=== PATIENT | female | born 1985 | race Caucasian/White ===

== ENCOUNTER 2018-09-02 10:58 | Outpatient (CLI) | payer OTHER ==
[~2018-09-02] VITALS: Wt 86.3 kg
[2018-09-02 11:49] LABS: HEMATOCRIT 40.9 % (37.0-47.0); HEMOGLOBIN 13.7 g/dl (12.5-16.0); MEAN CELL VOLUME 86 fl (80.0-100.0); MEAN CORPUSCULAR HEMOGLOBIN 29 pg (27.0-31.0); MEAN CORPUSCULAR HGB CONC 34 g/dl (33.0-37.0); MEAN PLATELET VOLUME 10.4 fl (7.4-10.4); PLATELET COUNT 247 K/mm3 (130-400); RED BLOOD COUNT 4.78 M/mm3 (4.10-5.30); REDCELL DISTRIBUTION WIDTH-CV 12.6 % (11.5-14.5)
[2018-09-02] MEDS ORDERED: VIIBRYD20 MG PO (11:51)
[2018-09-02] MEDS ORDERED: AMBIEN 10MG10 MG PO (11:51)
[2018-09-02 11:52] VITALS: BP 114/74; PULSE 55; TEMP 97.7
[2018-09-02] MEDS ORDERED: COUMADIN 5MG5 MG/TAB PO (11:52)
[2018-09-02 11:57] LABS: INR 2.3 (0.8-3.0); PROTHROMBIN TIME 26.4 SECONDS (9.7-12.8)
[2018-09-02 11:59] LABS: CALCIUM 9.2 mg/dL (8.4-10.2); CREATININE, serum 0.77 mg/dL (0.52-1.25); POTASSIUM 4.1 mmol/L (3.4-5.0)
[2018-09-02 12:35] VITALS: BP 106/64; PULSE 49
[2018-09-02 12:40] VITALS: BP 112/69; PULSE 52
[2018-09-02 13:00] VITALS: BP 111/82; PULSE 57
[2018-09-02 13:20] VITALS: BP 127/77; PULSE 53
== END 2018-09-02 13:59 | disposition home or self-care (01) ==
LOC: COL.RAD 10:58
PROVIDERS: Internal Medicine Cardiovascular Disease
DX: Q21.3 Tetralogy of Fallot (principal)
CPT/HCPCS: G9654; J2250; J2704; J7120

== ENCOUNTER 2018-10-11 22:51 | Inpatient (IN) | payer OTHER ==
[~2018-10-11] VITALS: Ht 157.5 cm; Wt 90.0 kg
[~2018-10-11 22:51] MED LIST: AMBIEN 10MG10 MG PO; COUMADIN 5MG5 MG/TAB PO; VIIBRYD20 MG PO
--- NOTE | 2018-10-11 23:32 | NUR ---
Patient arrived to the unit via stretcher. Complaining of some SOA. Placed on 2L NC.
[2018-10-12] VITALS (379 sets, daily range): BP systolic 96–118; BP diastolic 60–77; PULSE 55–67; TEMP 97.9–98.4; O2SAT 93–100
--- NOTE | 2018-10-12 00:21 | NUR ---
Called Dr. Chavze to report that patient has arrived to the unit. Stated will come to see her.
[2018-10-12 01:23] LABS: BASO # 0.1 (0.0-0.2); BASO % 0.5 % (0.0-2.0); EOS # 0.2 (0.0-0.7); EOS % 1.6 % (0-4.0); GRAN # 7.3 (1.4-6.5); GRAN % 58.6 % (42.2-75.2); HEMATOCRIT 39.9 % (37.0-47.0); HEMOGLOBIN 13.5 g/dl (12.5-16.0); LYMPH # 3.8 (1.2-3.4); LYMPH % 30.9 % (20.0-51.0); MEAN CELL VOLUME 86 fl (80.0-100.0); MEAN CORPUSCULAR HEMOGLOBIN 29 pg (27.0-31.0); MEAN CORPUSCULAR HGB CONC 34 g/dl (33.0-37.0); MEAN PLATELET VOLUME 10.8 fl (7.4-10.4); PLATELET COUNT 243 K/mm3 (130-400); RED BLOOD COUNT 4.66 M/mm3 (4.10-5.30)
[2018-10-12] MEDS ORDERED: LUNESTA2 MG PO (01:27)
[2018-10-12 01:31] LABS: PARTIAL THROMBOPLASTIN TIME 94.2 SECONDS (26.0-37.0)
[2018-10-12 01:36] LABS: CALCIUM 9.1 mg/dL (8.4-10.2); CREATININE, serum 0.78 mg/dL (0.52-1.25); POTASSIUM 4.1 mmol/L (3.4-5.0)
--- NOTE | 2018-10-12 05:45 | NUR ---
Patient using internet on telephone upon entering room. Reporting 8/10 chest pain and 10/10 headache. PRN Dilauded administered. No other complaints at this time.
--- NOTE | 2018-10-12 07:10 | NUR ---
Patient awake in bed, talking on phone at this time. This RN in to introduce self and ask for needs. States continues to have chest pain, pressure but a lot of shart pains also. This RN awaiting morning report, will see what patient has for PRN's and assess from there. Patient states ok. Call light at side.
--- NOTE | 2018-10-12 07:35 | NUR ---
Report recieved from Angela VARELA.
[2018-10-12 08:09] LABS: BASO % 0.3 % (0.0-2.0); EOS # 0.2 (0.0-0.7); EOS % 2.3 % (0-4.0); GRAN # 5.7 (1.4-6.5); GRAN % 56.7 % (42.2-75.2); HEMATOCRIT 38.8 % (37.0-47.0); HEMOGLOBIN 13.3 g/dl (12.5-16.0); LYMPH # 3.2 (1.2-3.4); LYMPH % 31.9 % (20.0-51.0); MEAN CELL VOLUME 86 fl (80.0-100.0); MEAN CORPUSCULAR HEMOGLOBIN 29 pg (27.0-31.0); MEAN CORPUSCULAR HGB CONC 34 g/dl (33.0-37.0); MEAN PLATELET VOLUME 10.8 fl (7.4-10.4); MONO # 0.9 (0.1-0.6); MONO % 8.5 % (1.7-9.3); PLATELET COUNT 201 K/mm3 (130-400); RED BLOOD COUNT 4.54 M/mm3 (4.10-5.30); REDCELL DISTRIBUTION WIDTH-CV 12.9 % (11.5-14.5)
[2018-10-12 08:12] LABS: INR 1.3 (0.8-3.0); PROTHROMBIN TIME 15.3 SECONDS (9.7-12.8)
[2018-10-12 08:17] LABS: CALCIUM 8.8 mg/dL (8.4-10.2); CREATININE, serum 0.73 mg/dL (0.52-1.25)
--- NOTE | 2018-10-12 08:30 | NUR ---
Recieved call from patient's mother. Mother is very concerned that patient's needs aren't being met. Wants to know what we're doing to help with patient's pain control, what's being down for PE. Talked through patient's POC with mother, states "Well I guess I'll have to drive up from [place] to get her the right care she needs." This RN speaks with patient and . Patient states mom is just over-protective, states "Don't worry about her, she can't do anything from [place] so this is how she reacts." Patient states didn't sleep much last night, very noisy on unit. Lights turned down, door shut and no visitor sign put up. Will reassess for needs as needed.
--- NOTE | 2018-10-12 10:44 | NUR ---
derrick worker attended clinical rounds and met with patient and spouse regarding discharge planning. 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 Patient's cardilogist is Dr Gutierrez and bee producer is Dr Meeks. Patient has monthly INR lab work in [place], where her physicians are located. Patient states she would want to have daily INR's drawn at [facility] due to location and then when they are decreased in amount, she would resume in [place]. Patient will need to be on Lovanox and is hesitent on giving herself a shot. Worker provided support and advised that nursing would begin teaching on Lovanox. Worker left message for Gricel Styles ([facility] with [facility]'s Medical Management office) #[phone] to secure medication and INR at [facility]. Patient plasn to transfer to the medical floor today and will discharge home with spouse upon discharge.
--- NOTE | 2018-10-12 12:10 | NUR ---
Report called to Luis Alberto VARELA
--- NOTE | 2018-10-12 12:20 | NUR ---
Patient transferred to room 351 via wheelchair with at side. Room turned down by this RN, no nurse or tech in room to accept patient. Call light at side, IV programmed per pump. 1225 Luis Alberto VARELA aware patient here, will be down to see.
--- NOTE | 2018-10-12 13:00 | NUR ---
Patient arrived to the Medical floor at 1230, she is alert/oriented, significant other present, ICU restarted IVF at time of arrival
--- NOTE | 2018-10-12 19:16 | NUR ---
Since taking over cares the pt has been resting on and off. She has had a constant headache. Pain medication administered on NOV. Pt's has been at the bedside; all questions answered. Pt is resting quietly in the bed at this time and she denies further needs. Call light within reach. Report given to AVERY Durán.
--- NOTE | 2018-10-12 22:45 | NUR ---
Completed assessment and medication administration for PT; PT A&Ox3, LCTA, BS active x4, 22G IV left wrist, AHA diet, Lovenox and coumadin therapy, C/O headache 07/07 with little to no relief with medication, although ice therapy assisting well; HX of cheset pain and SOB for 1 week prior to seeking medical attention; pulmonary valve replacement; possible D/C 10/13/2018. PT denies further needs or concerns; reports continued ice therapy for reported headache; Call light placed within reach; Will continue to monitor. CDA
--- NOTE | 2018-10-12 23:46 | NUR ---
PT reports decrease in headache to 4/10 using the numeric scale; PT reports chest soreness without SOA, chest tightness, or other acute changes. PT requesting PRN pain medication per order; [place] 5 given per order for reported pain. PT comfortably resting in bed without further report of further needs or concerns at this time. Call light placed within reach; Will continue to monitor. CDA
[2018-10-13 00:21] VITALS: BP 93/61; PULSE 71; TEMP 98.1
[2018-10-13 04:56] VITALS: BP 117/51; BP 122/76; PULSE 58; PULSE 64; TEMP 97.7
--- NOTE | 2018-10-13 05:01 | NUR ---
PT reports nausea without vomiting; PT refused dinner in evening reported stating that she was exhausted and wanted to rest. PT has rested well intermittently without major interruption. PT denies pain at time of report of nausea. PT provided with sprite, ice, basin, and cool rag; no medications requested at this time. Call light placed within reach; Will continue to monitor. CDA
--- NOTE | 2018-10-13 06:33 | NUR ---
Headache resolved early in the evening hours; Short complaint of chest soreness with request for [place] 5 with reported results; Late morning nausea that quickly resolved as well with Sprite, crackers, and cool rag to neck per request. PT able to return to a restful state without further complaints. No further needs stated at time of exit; Call light placed within reach; [facility] CDA
[2018-10-13 06:43] LABS: INR 1.4 (0.8-3.0); PROTHROMBIN TIME 15.9 SECONDS (9.7-12.8)
--- NOTE | 2018-10-13 08:30 | NUR ---
Pt awake alert and oriented. Pt states positive interest in self administering Lovenox. Call light within reach. "Minor nausea" stated d/t anxiety medicine accompanied with "pretty severe headache" that is described as an ache located in the "neck".
[2018-10-13 08:54] VITALS: BP 106/75; PULSE 51; TEMP 98.6
[2018-10-13 11:19] VITALS: BP 101/64; PULSE 67; TEMP 98.4
--- NOTE | 2018-10-13 12:06 | NUR ---
Pt educated on self injection of Lovenox. Pt correctly demonstrated then perfomred self injection without difficulty. Pt stated "that was a lot easier than I thought it would be".
--- NOTE | 2018-10-13 12:18 | NUR ---
First visit from the probation supervisor. No needs right now.
--- NOTE | 2018-10-13 15:40 | NUR ---
natalya faxed order for daily INR to [facility].
[2018-10-13 15:47] VITALS: BP 108/42; PULSE 67; TEMP 98.4
[2018-10-13] MEDS ORDERED: LOVENOX 100100 MG/ML SQ (16:34)
--- NOTE | 2018-10-13 17:58 | NUR ---
Pt's home pharmacy has already closed therefore pt would be unable to administer evening dose of Lovenox. Pharmacist Anthony notifed and said to give Lovenox dose now and ensure pt obtains prescription in the AM. Pt successfully self administered dose - proper hand hygeine and aseptic technique and administration demonstrated. Pt transfered from bed to wheel chair independently and without difficulty. Pt then transported to personal vehicle via wheelchair by RUBI Kohler.
== END 2018-10-13 18:06 | disposition home or self-care (01) | DRG 176 ==
LOC: IMCU 22:51 → MEDICAL 23:32 → ICU 23:32 → MEDICAL 10-12 12:39
PROVIDERS: ADMIT Internal Medicine Pulmonary Disease
DX: I26.99 Other pulmonary embolism without acute cor pulmonale (principal); I27.20 Pulmonary hypertension, unspecified; Z79.01 Long term (current) use of anticoagulants; Z95.2 Presence of prosthetic heart valve; F43.10 Post-traumatic stress disorder, unspecified; F41.9 Anxiety disorder, unspecified
CPT/HCPCS: 99222-AI; 99233-AI; J1170; J1644; J1650; J7120

== ENCOUNTER 2018-10-19 09:11 | Emergency (ER) | payer OTHER ==
[~2018-10-19] VITALS: Ht 157.5 cm; Wt 85.9 kg
[~2018-10-19 09:11] MED LIST changes: +LOVENOX 100100 MG/ML SQ; +LUNESTA2 MG PO
[2018-10-19 09:16] VITALS: TEMP 98
[2018-10-19 10:11] LABS: INR 2.2 (0.8-3.0); PROTHROMBIN TIME 25.1 SECONDS (9.7-12.8)
[2018-10-19 10:13] LABS: PARTIAL THROMBOPLASTIN TIME 60.1 SECONDS (26.0-37.0)
[2018-10-19 10:39] VITALS: BP 130/62; PULSE 70
== END 2018-10-19 10:40 | disposition home or self-care (01) ==
LOC: COL.ER 09:11
PROVIDERS: Physician Assistant
DX: R06.00 Dyspnea, unspecified (principal); I10 Essential (primary) hypertension; F43.10 Post-traumatic stress disorder, unspecified; F41.9 Anxiety disorder, unspecified; Z86.711 Personal history of pulmonary embolism; Z95.2 Presence of prosthetic heart valve; Z87.74 Personal history of (corrected) congenital malformations of heart and circulatory system; Z90.49 Acquired absence of other specified parts of digestive tract; Z98.890 Other specified postprocedural states; Z88.5 Allergy status to narcotic agent; Z88.6 Allergy status to analgesic agent; Z79.01 Long term (current) use of anticoagulants

== ENCOUNTER 2018-11-06 20:29 | Observation (INO) | payer OTHER ==
[~2018-11-06] VITALS: Ht 157.5 cm; Wt 89.0 kg
[2018-11-06] MEDS ORDERED: COUMADIN 5MG5 MG/TAB PO (21:23)
[2018-11-06] MEDS ORDERED: COUMADIN 77.5 MG/TAB PO (21:25)
[2018-11-06] MEDS ORDERED: NORCO 325 MG-51 TAB PO (21:26)
--- NOTE | 2018-11-06 21:37 | NUR ---
PT IN BED WITH HOB ELEVATED TO 45 DEGREE ANGLE, CHEST PAIN GOING BACK UP FROM A 5 TO 7/10, FEELS LIKE SHARP WITH PRESSURE. BACK, NECK, AND LEFT SHOULDER AREA HURTS WELL. PT CAME VIA AMBULANCE FROM [facility]. PT ARRIVED WITH NO FAMILY MEMBERS. PT A/O X4, COOPERATIVE AND PLEASANT. NO NEEDS AT THIS TIME. CALL LIGHT WITHIN REACH.
[2018-11-06 22:10] VITALS: BP 121/80; PULSE 63; TEMP 98.3
[2018-11-06 22:31] LABS: MAGNESIUM 1.8 mg/dL (1.6-2.3); PHOSPHOROUS 3.4 mg/dL (2.5-4.5)
[2018-11-06 22:45] LABS: TROPONIN-I < 0.012 ng/mL (0.000-0.035)
[2018-11-06 23:08] LABS: PH 6 (5-8); URINE APPEARANCE Clear; URINE BACTERIA None Seen /hpf; URINE BILIRUBIN Negative (NEGATIVE); URINE BLOOD Negative (NEGATIVE); URINE COLOR Yellow; URINE GLUCOSE Negative (NEGATIVE); URINE KETONE Negative (NEGATIVE); URINE LEUKOCYTE ESTERASE Negative (NEGATIVE); URINE NITRATE Negative (NEGATIVE); URINE PROTEIN(semi-quant) Negative (NEGATIVE); URINE RBC 0-2 /hpf; URINE UROBILINOGEN Negative (NEGATIVE)
--- NOTE | 2018-11-07 00:24 | NUR ---
PT SLEEPING/RESTING IN BED, BUT EASILY AWAKENS. PT DENIES ANY PAIN OR DISCOMFORT AT THIS TIME. CALL LIGHT WITHIN REACH.
[2018-11-07 00:59] VITALS: BP 116/68; PULSE 63; TEMP 97.7
[2018-11-07 01:07] LABS: COLLECTION METHOD CLEAN CATCH
[2018-11-07 03:51] VITALS: BP 96/46; PULSE 63
--- NOTE | 2018-11-07 06:11 | NUR ---
PT SLEPT A LITTLE DURING THE NIGHT, BUT WAS AWAKE FOR MOST OF IT. PT HAD SOME C/O CHEST PAIN THAT WAS RELIEVED BY THE DILAUDID. PT HAD SOME C/O ALSO OF FEELING ITCHY, GAVE BENADRYL X2 DURING THE NIGHT. PT ALSO HAS HAD PLENTY OF WATER TO DRINK BUT DECLINES ANY FOOD, DUE TO LOSS OF APPITITE. NO FURTHER NEEDS AT THIS TIME. CALL LIGHT WITHIN REACH.
--- NOTE | 2018-11-07 07:00 | NUR ---
Report received from AVERY Trinidad. PT requesting pain medicine for chest pain at 05/07, will provide
[2018-11-07 07:39] VITALS: BP 112/76; PULSE 64; TEMP 97.8
--- NOTE | 2018-11-07 07:44 | NUR ---
Pt given PRN pain medicaiton, already feeling better but itching persisting, states it usually subsides in a few minutes. Sititng up in bed talking comfortably, pain is now 4/10 in chest. Doing well, denies needs, urine is yellow nad clear, will continue to monitor.
[2018-11-07 09:20] LABS: BASO % 0.5 % (0.0-2.0); EOS # 0.2 (0.0-0.7); EOS % 2.8 % (0-4.0); GRAN # 4.6 (1.4-6.5); GRAN % 57.2 % (42.2-75.2); HEMATOCRIT 39.7 % (37.0-47.0); HEMOGLOBIN 13.3 g/dl (12.5-16.0); LYMPH # 2.5 (1.2-3.4); LYMPH % 30.9 % (20.0-51.0); MEAN CELL VOLUME 86 fl (80.0-100.0); MEAN CORPUSCULAR HEMOGLOBIN 29 pg (27.0-31.0); MEAN CORPUSCULAR HGB CONC 34 g/dl (33.0-37.0); MEAN PLATELET VOLUME 10.6 fl (7.4-10.4); MONO # 0.7 (0.1-0.6); MONO % 8.3 % (1.7-9.3); PLATELET COUNT 240 K/mm3 (130-400); RED BLOOD COUNT 4.61 M/mm3 (4.10-5.30); REDCELL DISTRIBUTION WIDTH-CV 12.9 % (11.5-14.5)
[2018-11-07 09:28] LABS: INR 3.7 (0.8-3.0); PROTHROMBIN TIME 42.2 SECONDS (9.7-12.8)
[2018-11-07 09:31] LABS: CALCIUM 9.1 mg/dL (8.4-10.2); CREATININE, serum 0.93 mg/dL (0.52-1.25); POTASSIUM 3.4 mmol/L (3.4-5.0)
[2018-11-07 12:04] VITALS: BP 110/67; PULSE 62; TEMP 98.7
--- NOTE | 2018-11-07 16:27 | NUR ---
Plan is to return home with Ferd as care support. Assess: Patient reports that she resides at home with her and son Marbin POC . Patient reports that she does not have a DPOA, PCP is Dr. Patel at [facility] and she also fills RX at [facility]. Patient reports that she is able to transport herself home and does not require any DME. ACtion: SW educated patient on resources and left a blank DPOA-HC for her to fill out, educated on notary services for 11/08/2018 prior to leaving. No additional concerns identified.
[2018-11-07 16:37] VITALS: BP 84/44; PULSE 69; TEMP 98
--- NOTE | 2018-11-07 18:42 | NUR ---
Pt doing well. PRN pain and itching medicaitons provided throughout shift per request. Discussed with pharmacy plan for coumadin tonight, she will call Dr. Sanford to clarify. Denies needs, took a shower, will give bedside shift report to nightshift nurse who will resume care.
[2018-11-07 19:34] VITALS: BP 105/67; PULSE 68; TEMP 98.4
--- NOTE | 2018-11-07 21:13 | NUR ---
PT IN BED RESTING/SLEEPING, HAS CHEST/LEFT SHOULDER PAIN RATED AT 6/10 THAT FEELS LIKE PRESSURE/SHARP, GAVE DILUADID FOR PAIN. PT STILL FEELS ITCHY, GAVE HER BENADRYL FOR ITCHING. NO FURTHER NEEDS AT THIS TIME, CALL LIGHT IN REACH. PT AWARE THAT SHE IS NPO AFTER MIDNIGHT.
[2018-11-08] VITALS (9 sets, daily range): BP systolic 95–111; BP diastolic 61–71; PULSE 67–98; TEMP 97.8–98.4
--- NOTE | 2018-11-08 05:30 | NUR ---
PT HAS HAD AN UNEVENTFUL NIGHT. PT HAS GOTTEN SOME SLEEP, BUT ALSO HAS BEEN AWAKE OFF AND ON THROUGHOUT THE NIGHT. PT IS AWARE THAT SHE IS NPO AND HAS NOT HAD ANYTHING TO EAT OR DRINK AFTER MIDNIGHT. PT ADVISED THAT HER PAIN HAS NOT BEEN SEVERE IT HAD BEEN AND THAT THE PAIN IS GETTING TOLERABLE FOR HER. PT ALSO ADVISED THAT THE BEDPAD IS WHAT SHE THINKS MADE HER ITCHY AND THAT SHE DOES NOT FEEL SHE NEEDS THE BENADRYL AT THIS TIME, AND ALSO SHE FEELS SHE DOES NOT NEED THE PAIN MEDICATION MUCH. PT HAS NO FURTHER NEEDS, AND CALL LIGHT IS WITHIN REACH.
[2018-11-08 06:15] LABS: BASO # 0.1 (0.0-0.2); BASO % 0.6 % (0.0-2.0); EOS # 0.2 (0.0-0.7); EOS % 2.4 % (0-4.0); GRAN # 4.4 (1.4-6.5); HEMOGLOBIN 13.3 g/dl (12.5-16.0); LYMPH # 3.1 (1.2-3.4); MEAN CELL VOLUME 86 fl (80.0-100.0); MEAN CORPUSCULAR HEMOGLOBIN 29 pg (27.0-31.0); MEAN CORPUSCULAR HGB CONC 34 g/dl (33.0-37.0); MONO # 0.8 (0.1-0.6); MONO % 9.7 % (1.7-9.3); PLATELET COUNT 237 K/mm3 (130-400); RED BLOOD COUNT 4.56 M/mm3 (4.10-5.30); REDCELL DISTRIBUTION WIDTH-CV 12.8 % (11.5-14.5)
[2018-11-08 06:24] LABS: INR 2.8 (0.8-3.0); PROTHROMBIN TIME 31.4 SECONDS (9.7-12.8)
[2018-11-08 06:29] LABS: CALCIUM 9.3 mg/dL (8.4-10.2); CHOLESTEROL RISK RATIO 7.3; CREATININE, serum 0.89 mg/dL (0.52-1.25); POTASSIUM 3.8 mmol/L (3.4-5.0)
--- NOTE | 2018-11-08 08:43 | NUR ---
Pt is awake and A/Ox4. She states she is having continued pain in her chest, unrelieved by IV fentanyl. Pt rates pain a 9/10. Saline lock to right hand is free of complications. Pt remains NPO for lexiscan. Pt is up as tolerated in room. Denies any other needs.
--- NOTE | 2018-11-08 11:36 | NUR ---
First visit from the railroad baggage porter. Car Body Mechanic spoke with , no needs right now.
--- NOTE | 2018-11-08 12:30 | NUR ---
Pt was discharged home from hospital. All discharge instructions and paperwork was reviewed with pt and her who expressed understanding and had no questions. Saline lock removed, catheter tip intact. Medications reviewed. Pt was escorted out of facility by staff.
== END 2018-11-08 13:05 | disposition home or self-care (01) ==
LOC: MEDICAL 20:29
PROVIDERS: Nurse Practitioner Family; ADMIT Hospitalist
DX: R07.89 Other chest pain (principal); Z95.2 Presence of prosthetic heart valve; I27.20 Pulmonary hypertension, unspecified; I08.1 Rheumatic disorders of both mitral and tricuspid valves; F41.9 Anxiety disorder, unspecified; F43.10 Post-traumatic stress disorder, unspecified; Z79.01 Long term (current) use of anticoagulants; Z90.49 Acquired absence of other specified parts of digestive tract; Z88.5 Allergy status to narcotic agent; Z88.6 Allergy status to analgesic agent; Z88.8 Allergy status to other drugs, medicaments and biological substances
CPT/HCPCS: A9500; G0378; J1170; J1200; J1940; J2785

== ENCOUNTER 2018-11-30 08:58 | Outpatient (CLI) | payer OTHER ==
[~2018-11-30] VITALS: Ht 157.6 cm; Wt 88.0 kg
[~2018-11-30 08:58] MED LIST changes: +COUMADIN 77.5 MG/TAB PO; +NORCO 325 MG-51 TAB PO
[2018-11-30 09:45] VITALS: BP 115/70; PULSE 65; TEMP 97.7
[2018-11-30 10:08] LABS: HEMATOCRIT 37.9 % (37.0-47.0); HEMOGLOBIN 12.6 g/dl (12.5-16.0); MEAN CELL VOLUME 87 fl (80.0-100.0); MEAN CORPUSCULAR HEMOGLOBIN 29 pg (27.0-31.0); MEAN CORPUSCULAR HGB CONC 33 g/dl (33.0-37.0); PLATELET COUNT 232 K/mm3 (130-400); RED BLOOD COUNT 4.36 M/mm3 (4.10-5.30); REDCELL DISTRIBUTION WIDTH-CV 12.8 % (11.5-14.5)
[2018-11-30 10:10] LABS: INR 4.5 (0.8-3.0)
[2018-11-30 10:14] LABS: PROTHROMBIN TIME 51.2 SECONDS (9.7-12.8)
[2018-11-30 10:15] LABS: CALCIUM 8.9 mg/dL (8.4-10.2); CREATININE, serum 0.74 mg/dL (0.52-1.25); POTASSIUM 4.3 mmol/L (3.4-5.0)
[2018-11-30 10:35] VITALS: BP 107/69; PULSE 63; TEMP 97.5
--- NOTE | 2018-11-30 10:35 | NUR ---
Report from Corey Potter RN, pt massiel CARY well. Pt resting well in bed.
[2018-11-30 10:50] VITALS: BP 98/66; PULSE 66
[2018-11-30 11:05] VITALS: BP 95/66; PULSE 69
[2018-11-30 11:20] VITALS: BP 103/78; PULSE 64
[2018-11-30 11:35] VITALS: BP 118/85; PULSE 65
--- NOTE | 2018-11-30 11:45 | NUR ---
Pt has ambulated and massiel PO intake s n/v. PIV removed with catheter intact.
--- NOTE | 2018-11-30 11:50 | NUR ---
Pt discharged per w/c by nurse with emani Miller.
== END 2018-11-30 11:58 | disposition home or self-care (01) ==
LOC: COL.RAD 08:58
PROVIDERS: Internal Medicine Cardiovascular Disease
DX: I37.8 Other nonrheumatic pulmonary valve disorders (principal)
CPT/HCPCS: J2704; J7030

== ENCOUNTER 2019-04-02 17:01 | Inpatient (IN) | payer OTHER ==
[~2019-04-02] VITALS: Ht 157.5 cm; Wt 77.4 kg
[~2019-04-02 17:01] MED LIST changes: +CEPHALEXIN500 M1 PO; +IBU600 MG PO; +PEPCID 20MG TAB20 MG PO
[2019-04-02 17:39] VITALS: BP 115/73; PULSE 66; TEMP 97.9
--- NOTE | 2019-04-02 18:21 | NUR ---
Patient admitted to room 358. Arrival via EMS from [facility]. Vss on room air. Inital, 5 page and med rec up to date. Her son & spouse at bedside. Wilma Ibarra to see patient.
--- NOTE | 2019-04-02 19:36 | NUR ---
Pt sitting in bed eating dinner. Pt c/o pain 3-4/10 in L chest. PRN Tylenol given. Heart rhythm regular. Murmur auscultated. Respirations even and unlabored. Lungs clear. BS+. Abdomen soft, nontender. Pedal pulses 1+. No edema noted. L AC INT. No needs noted. will continue to monitor.
[2019-04-02 19:40] LABS: PH 5 (5-8); URINE APPEARANCE Clear; URINE BACTERIA None Seen /hpf; URINE BILIRUBIN Negative (NEGATIVE); URINE BLOOD Negative (NEGATIVE); URINE COLOR Straw; URINE GLUCOSE Negative (NEGATIVE); URINE KETONE Negative (NEGATIVE); URINE LEUKOCYTE ESTERASE 1+ (NEGATIVE); URINE NITRATE Negative (NEGATIVE); URINE PROTEIN(semi-quant) Negative (NEGATIVE); URINE RBC 0-2 /hpf; URINE UROBILINOGEN Negative (NEGATIVE)
[2019-04-02 19:44] LABS: TROPONIN-I < 0.012 ng/mL (0.000-0.035)
[2019-04-02 19:45] LABS: COLLECTION METHOD CLEAN CATCH
[2019-04-02 21:12] VITALS: BP 100/65; PULSE 76; TEMP 97.6
[2019-04-03 00:53] VITALS: BP 102/63; PULSE 72; TEMP 97.9
[2019-04-03 01:07] LABS: BASO # 0.1 (0.0-0.2); BASO % 0.6 % (0.0-2.0); EOS # 0.2 (0.0-0.7); EOS % 2.3 % (0-4.0); GRAN # 4.3 (1.4-6.5); GRAN % 51.6 % (42.2-75.2); HEMATOCRIT 37.6 % (37.0-47.0); HEMOGLOBIN 12.5 g/dl (12.5-16.0); LYMPH # 2.9 (1.2-3.4); LYMPH % 34.5 % (20.0-51.0); MEAN CELL VOLUME 85 fl (80.0-100.0); MEAN CORPUSCULAR HEMOGLOBIN 28 pg (27.0-31.0); MEAN CORPUSCULAR HGB CONC 33 g/dl (33.0-37.0); MEAN PLATELET VOLUME 10.9 fl (7.4-10.4); MONO # 0.9 (0.1-0.6); MONO % 10.8 % (1.7-9.3); PLATELET COUNT 232 K/mm3 (130-400); RED BLOOD COUNT 4.42 M/mm3 (4.10-5.30); REDCELL DISTRIBUTION WIDTH-CV 12.9 % (11.5-14.5)
[2019-04-03 01:12] LABS: INR 3.9 (0.8-3.0)
[2019-04-03 01:15] LABS: PARTIAL THROMBOPLASTIN TIME 56.6 SECONDS (26.0-37.0)
[2019-04-03 01:26] LABS: PROTHROMBIN TIME 47.5 SECONDS (9.7-12.8)
[2019-04-03 02:42] LABS: ANION GAP 9 mmol/L (7-16); BLOOD UREA NITROGEN 11 mg/dL (7-17); CALCIUM 8.8 mg/dL (8.4-10.2); CARBON DIOXIDE 24 mmol/L (22-30); CHLORIDE 107 mmol/L (98-107); CHOLESTEROL 197 mg/dL (120-200); CHOLESTEROL RISK RATIO 5.6; CREATININE, serum 0.69 (0.52-1.25); GLUCOSE 76 mg/dL (74-106); HDL CHOLESTEROL 35 mg/dL; LDL CHOLESTEROL 126 mg/dL; POTASSIUM 4.1 mmol/L (3.4-5.0); SODIUM 140 mmol/L (137-145); TRIGLYCERIDE 180 mg/dL
[2019-04-03 02:56] LABS: TROPONIN-I < 0.012 ng/mL (0.000-0.035)
[2019-04-03 03:01] VITALS: BP 83/62; PULSE 67; TEMP 97.7
[2019-04-03 03:49] VITALS: BP 100/62
--- NOTE | 2019-04-03 03:50 | NUR ---
Pts blood pressure decreased systolic per ADMIN ASSISTANT. Rechecked with patient lying supine at 100/62 which is near pts baseline. will continue to monitor.
--- NOTE | 2019-04-03 06:15 | NUR ---
Pt sleeping this AM. She has slept periodically throughout the night. Telemetry in place. Pt has been SR. No needs noted.
--- NOTE | 2019-04-03 10:25 | NUR ---
Patient resting in bed. watching TV on her phone, with headphones. rounded, echo completed. She reports chest pain much imporved with Iv toradol. She is yet to order breakfast, reports not being hungery, denies nausea. Will monitor.
--- NOTE | 2019-04-03 10:54 | NUR ---
Patient lives at home with her (Fred Hi [phone]) on[place]post at [place], [place] and plans to return home with her upon discharge. Patient has no durable medical equipment usage or anticipated needs at this time, her medical doctors are Dr. Patel, Dr. Gregorio Gutierrez, and Dr. Wilner Meeks, her pharmacy is [facility], and she does not have advance directives for healthcare completed at this time. Patient is from [place] and has lived in [place] for approximately two years. No further needs at this time and social work case manager will follow as needed.
[2019-04-03] MEDS ORDERED: MOTRIN 600600 MG/TAB PO (11:12)
[2019-04-03] MEDS ORDERED: BACTRIM DS 8001 TAB PO (11:31)
--- NOTE | 2019-04-03 11:33 | NUR ---
Hostpitalist has rounded. discharge orders obtained. We reviewed discharge medications, she is to pickling grader at pharmacy script for antibioitc & ibprophen. we reviewed resuming home coumadin dose-she has INR recheck on 04/06/19. Patient going to get a BP machine to monitor her blood pressure per orders. She will make follow up appt for Mo & bret RA. Patient to see Dr.Katz Macedo. She denies any other questions or concerns. Patient ambulated out with all belongings her son & spouse to take her home.
== END 2019-04-03 11:36 | disposition home or self-care (01) | DRG 690 ==
LOC: MEDICAL 17:01
PROVIDERS: Nurse Practitioner Family; ADMIT Hospitalist
DX: N39.0 Urinary tract infection, site not specified (principal); R07.89 Other chest pain; Z79.01 Long term (current) use of anticoagulants; Z95.2 Presence of prosthetic heart valve; Z86.711 Personal history of pulmonary embolism; F41.9 Anxiety disorder, unspecified; F43.12 Post-traumatic stress disorder, chronic; Z88.6 Allergy status to analgesic agent; Z91.09 Other allergy status, other than to drugs and biological substances; I07.1 Rheumatic tricuspid insufficiency; M79.662 Pain in left lower leg; Z86.79 Personal history of other diseases of the circulatory system
CPT/HCPCS: A4216; J0696; J1885